=== PATIENT | female | born 1965 | race Caucasian/White ===

== ENCOUNTER 2018-06-25 15:46 | Emergency (ER) | payer OTHER, SELFPAY ==
[2018-06-25 16:14] VITALS: BP 149/76; PULSE 77; RESP 18; TEMP 36.6; O2SAT 98
--- NOTE | 2018-06-25 17:33 | DI.RAD_ITS ---
SYMPTOM/DIAGNOSIS: TRAUMA RIGHT KNEE: No fracture or joint effusion is seen. The joint spaces are well maintained. IMPRESSION: Negative right knee.
[2018-06-25] MEDS: Ibuprofen 600 MG TAB PO (18:12)
[2018-06-25] MEDS: Acetaminophen 325 MG TAB 650 MG PO (18:12)
[2018-06-25] MEDS: Erythromycin Ophth Oint 3.5 GM TUBE OS (18:12)
--- NOTE | 2018-06-25 18:19 | ED.GENADUL_ITS ---
Discharge Plan Disposition Patient Disposition: HOME Condition: Stable Discharge Details Chief Complaint: Orthopedic Clinical Impression: Right knee sprain, Conjunctivitis Reason For Visit: right knee pain Primary Care Provider: Stacy,Local ED Provider: Ray Meyer Home Meds and New Rx's Prescriptions: Continued Advair HFA 230-21 mcg/actuation Hfa Aerosol Inhaler RF: 0 esterified estrogens 1.25 mg Tablet RF: 0 Progesterone Patch 1 patch .WEEKLY RF: 0 Discharge Instructions Instructions: Knee Sprain (ED), RICE Therapy (ED), Conjunctivitis (ED) Additional Instructions: You may continue to use [id number] acetaminophen and ibuprofen, 600 of ibuprofen, 650 of Tylenol every 6 hours, as needed for discomfort. Please take erythromycin and apply half inch to left eye 4 times daily for 5 days. Please use the crutches over the next 3 days and then slowly advance weightbearing activities as tolerated by discomfort. If not improving over next couple weeks please follow-up with orthopedist for reassessmentr Referrals: Primary Care Provider [Outside] Discharge Data Discharge Date/Time-TO BE ENTERED AT DEPARTURE: 06/25/18 19:00 Medical Decision Making Patient presenting the emergency department for chief complaint of right knee pain. Patient states while skiing she fell with her knee twisted on her. Every time she attempted to bear weight her knee gave out on her . Patient denies any other injury or trauma. Patient does state this morning she woke up and had dry sensation to left eye along with crusting and it being matted shut. It is continued to be irritated throughout the day. Patient denies any other symptoms. Left eye is consistent with conjunctivitis and viral versus bacterial but given no other upper respiratory tract symptoms or other cold-like symptoms there is concern for possible bacterial conjunctivitis. Patient placed up on erythromycin ointment due to concern of possible bacterial in nature. No other logical findings of concern are noted on exam and EOMs are intact, no significant pain or discomfort, no vision change. Right knee is significantly tender to the tibial tuberosity and to the medial knee. Did not attempt to weight-bear patient given description of it giving out every time she attempts to stand and discomfort. Some pain also noted with valgus test but no significant laxity is appreciated on any ligamentous testing. Concern for fracture versus meniscal injury versus knee sprain. Plan to do radiological imaging to rule out acute fracture. Pending results patient given acetaminophen and ibuprofen. Review of radiological imaging shows no acute fracture. Patient was requesting to be discharged prior to radiologist interpretation which given no obvious findings I do feel that patient can be safely discharged. Patient was discharged on crutches and given hinged knee brace and encouraged to remain nonweightbearing for the next 2-3 days and then slowly advance activity as tolerated. Patient to follow-up with local orthopedist if not improving over the next couple weeks. HPI General Mode of arrival: wheelchair . Date/Time Provider Initiated Documentation: 06/25/18 17:17 . Limitations to Documentation: no limitations . Information obtained by: patient and RN notes reviewed . History of Present Illness 53 year old F presents to the emergency department with the chief complaint of right knee pain, described as moderate, with intensity rated at 3. Quality is described as aching and sharp, and is localized to the right and lower extremity. Patient started experiencing this hour(s) (3) and it has been constant. No relieving factors improve symptom(s), Movement worsens symptoms . Patient notes no other symptoms.. Patient did receive the following treatments prior to arrival, none Related Data Home Medications Medication Instructions Recorded Confirmed Advair HFA 06/25/18 Progesterone Patch 1 patch .WEEKLY 06/25/18 esterified estrogens 06/25/18 Allergies Allergy/AdvReac Type Severity Reaction Status Date / Time penicillin G Allergy Unverified 06/25/18 16:56 General Stated Complaint: Orthopedic MARKELL: 4 Review of Systems Eyes Reports eye discharge (left) and Reports itchy eyes Cardiovascular Denies syncope Musculoskeletal Reports as per HPI, Denies numbness and Denies tingling Integumentary/Breasts Denies rash, Denies sores and Denies wounds Neurologic Denies syncope, Denies numbness and Denies tingling Allergic/Immunologic Reports itchy eyes Exam Const General: cooperative and no acute distress Orientation: alert, awake and oriented x3 Eyes Visual Ugalde: normal visual ugalde by confrontation Alignment and Position: alignment normal Periorbital: periorbital findings normal Eyelids: eyelids normal Conjunctivae: conjunctival abnormality left conjunctival injection diffuse Sclera: scleral abnormality left scleral injection diffuse Cornea: corneas normal Pupils: PERRL and normal by confrontation EOM: EOM intact bilaterally Resp Effort & Inspection: normal respiratory effort and able to speak in complete sentences Cardio Rate: regular rate Rhythm: regular rhythm Extrem Right lower extremity: hip/thigh Details: normal to inspection; no tenderness and no swelling and knee Details: tenderness Location: of the tibial tuberosity and of the medial joint line, swelling (Diffuse), abnormal ROM Details: pain with active ROM during Details: in extension; able to extend lower leg actively and knee ligament exam abnormal Details: valgus stress test normal Details: pain noted; no ecchymosis and no crepitus Left lower extremity: normal to inspection Course Vital Signs Temperature 36.6 C 06/25/18 16:14 Pulse 77 06/25/18 16:14 Respiratory Rate 18 06/25/18 16:14 Blood Pressure 149/76 H 06/25/18 16:14 Pulse Oximetry 98 06/25/18 16:14 Temperature 36.6 C 06/25/18 16:14 Temperature Source Temporal Artery Scan 06/25/18 16:14 Pulse 77 06/25/18 16:14 Respiratory Rate 18 06/25/18 16:14 Blood Pressure 149/76 H 06/25/18 16:14 Blood Pressure Position Sitting 06/25/18 16:14 Pulse Oximetry 98 06/25/18 16:14 Oxygen Delivery Method Room Air 06/25/18 16:14 Oxygen Flow Rate 0 06/25/18 16:14 Pain Level 3 06/25/18 16:14
--- NOTE | 2018-06-25 18:53 | DI.VRAD_ITS ---
EXAM: XR Right Knee, 3 Views EXAM DATE/TIME: 06/25/2018 5:35 PM CLINICAL HISTORY: 53 years old, female; Injury or trauma; Fall; Initial encounter; Sprain or strain right knee TECHNIQUE: XR Right knee 3 views. COMPARISON: No relevant prior studies available. FINDINGS: Bones/joints: No fracture. No dislocation. No focal osseous lesion. No significant degenerative change. No joint effusion by plain film. Soft tissues: No soft tissue radiopaque foreign body. IMPRESSION: No acute findings. Dictated and Authenticated by: Isidro Orellana MD. Ordering:SAUD Bell MD
== END 2018-06-25 19:00 | disposition home or self-care (01) ==
PROVIDERS: Emergency Provider Nurse Practitioner Family
DX: S83.91XA Sprain of unspecified site of right knee, initial encounter (principal); H10.9 Unspecified conjunctivitis; V00.321A Fall from snow-skis, initial encounter
CPT/HCPCS: 29505; 73562; 99283; 99282; E0114; L1820